=== PATIENT | male | born 2000 | race Caucasian/White ===

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

== ENCOUNTER → 2021-02-20 | Outpatient (CLI) | payer OTHER | END | disposition home or self-care (01) | LOC: COVID19 16:37 | PROVIDERS: ATTEND Hospitalist | DX: Z11.52 Encounter for screening for COVID-19 (principal) ==

== ENCOUNTER 2021-03-14 11:30 | Emergency (ER) | payer SELFPAY ==
[~2021-03-14] VITALS: Ht 165.1 cm; Wt 49.9 kg
[2021-03-14] MEDS ORDERED: PREDNISONE20 M1 PO (22:27)
== END 2021-03-14 13:32 | disposition left against medical advice (07) ==
LOC: ED 11:30
DX: R05.9 Cough, unspecified (principal); Z53.21 Procedure and treatment not carried out due to patient leaving prior to being seen by health care provider

== ENCOUNTER 2021-03-14 19:17 | Emergency (ER) | payer SELFPAY ==
[~2021-03-14] VITALS: Ht 165.1 cm; Wt 49.9 kg
[2021-03-14] MEDS ORDERED: PREDNISONE20 M1 PO (22:27)
== END 2021-03-14 22:47 | disposition home or self-care (01) ==
LOC: ED 19:17
DX: J40 Bronchitis, not specified as acute or chronic (principal)

== ENCOUNTER 2022-09-06 20:23 | Emergency (ER) | payer SELFPAY ==
[~2022-09-06] VITALS: Ht 165.1 cm; Wt 49.9 kg
[~2022-09-06 20:23] MED LIST changes: +PREDNISONE20 M1 PO
[2022-09-06 21:37] LABS: BILIRUBIN Negative (Negative); BLOOD Negative (Negative); CLARITY Clear (Clear); COLOR Yellow (Yellow); GLUCOSE Negative (Negative); KETONE Negative (Negative); LEUKO ESTERASE 2+ (Negative); NITRITE Negative (Negative); SPECIFIC GRAVITY 1.015 (1.001-1.030)
[2022-09-06 21:56] LABS: BACTERIA 1+; WBC 31-40 wbc/hpf (0-5)
[2022-09-06] MEDS ORDERED: VIBRAMYCIN100 MG PO (22:06)
== END 2022-09-06 22:10 | disposition home or self-care (01) ==
LOC: ED 20:23
PROVIDERS: Nurse Practitioner Family
DX: Z20.2 Contact with and (suspected) exposure to infections with a predominantly sexual mode of transmission (principal)

== ENCOUNTER 2023-07-08 10:20 | Emergency (ER) | payer SELFPAY ==
[~2023-07-08] VITALS: Ht 165.1 cm; Wt 59.0 kg
[~2023-07-08 10:20] MED LIST changes: +VIBRAMYCIN100 MG PO
== END 2023-07-08 12:13 | disposition home or self-care (01) ==
LOC: ED 10:20
DX: S61.211A Laceration without foreign body of left index finger without damage to nail, initial encounter (principal); F90.9 Attention-deficit hyperactivity disorder, unspecified type; Z98.890 Other specified postprocedural states; W26.0XXA Contact with knife, initial encounter; Y93.G3 Activity, cooking and baking; Y92.89 Other specified places as the place of occurrence of the external cause; Y99.8 Other external cause status

== ENCOUNTER 2023-10-05 19:10 | Emergency (ER) | payer SELFPAY ==
[~2023-10-05] VITALS: Ht 167.6 cm; Wt 68.0 kg
[2023-10-05] MEDS ORDERED: Lidocaine Hydrochloride 2% 10 ML AMP SC ONE (19:20)
[2023-10-05] MEDS ORDERED: CEPHALEXIN500 M1 PO (19:44)
== END 2023-10-05 19:59 | disposition home or self-care (01) ==
LOC: ED 19:10
DX: S60.452A Superficial foreign body of right middle finger, initial encounter (principal); F90.9 Attention-deficit hyperactivity disorder, unspecified type; Z98.890 Other specified postprocedural states; W22.8XXA Striking against or struck by other objects, initial encounter; Y93.89 Activity, other specified; Y92.89 Other specified places as the place of occurrence of the external cause; Y99.0 Civilian activity done for income or pay

== ENCOUNTER 2024-08-31 20:01 | Emergency (ER) | payer SELFPAY ==
[~2024-08-31] VITALS: Ht 167.6 cm; Wt 81.6 kg
[~2024-08-31 20:01] MED LIST changes: +CEPHALEXIN500 M1 PO
[2024-08-31] MEDS ORDERED: Ondansetron Hydrochloride 4 MG TAB SL ONE (20:35)
== END 2024-08-31 21:47 | disposition home or self-care (01) ==
LOC: ED 20:01
DX: B34.9 Viral infection, unspecified (principal); Z20.822 Contact with and (suspected) exposure to COVID-19; Z79.899 Other long term (current) drug therapy